=== PATIENT | male | born 1970 | race Caucasian/White ===

== ENCOUNTER 2024-03-08 12:43 | Outpatient (CLI) | payer OTHER, SELFPAY | END 2024-03-08 12:44 | disposition home or self-care (01) | PROVIDERS: Visit Provider Surgery | DX: L89.523 Pressure ulcer of left ankle, stage 3 (principal); L89.893 Pressure ulcer of other site, stage 3; E11.8 Type 2 diabetes mellitus with unspecified complications; G90.09 Other idiopathic peripheral autonomic neuropathy; M21.172 Varus deformity, not elsewhere classified, left ankle | CPT/HCPCS: 11042; G0463 ==

== ENCOUNTER 2024-03-15 13:15 | Outpatient (CLI) | payer OTHER, SELFPAY | END 2024-03-15 13:16 | disposition home or self-care (01) | LOC: WOUND 13:15 | PROVIDERS: Visit Provider Surgery | DX: L89.523 Pressure ulcer of left ankle, stage 3 (principal); L89.893 Pressure ulcer of other site, stage 3; G90.09 Other idiopathic peripheral autonomic neuropathy; M21.172 Varus deformity, not elsewhere classified, left ankle | CPT/HCPCS: 11042; 87070; 87077; 87186; 97597 ==

== ENCOUNTER 2024-03-29 12:53 | Outpatient (CLI) | payer OTHER, SELFPAY | END 2024-03-29 12:54 | disposition home or self-care (01) | PROVIDERS: Visit Provider Surgery | DX: G90.09 Other idiopathic peripheral autonomic neuropathy (principal); L97.322 Non-pressure chronic ulcer of left ankle with fat layer exposed; L89.899 Pressure ulcer of other site, unspecified stage; M21.172 Varus deformity, not elsewhere classified, left ankle; E11.8 Type 2 diabetes mellitus with unspecified complications | CPT/HCPCS: 11042; 87070; 87077; 87186; 97597; G0463 ==

== ENCOUNTER 2024-04-05 13:17 | Outpatient (CLI) | payer OTHER, SELFPAY | END 2024-04-05 13:18 | disposition home or self-care (01) | LOC: WOUND 13:17 | PROVIDERS: Visit Provider Family Medicine | DX: L89.523 Pressure ulcer of left ankle, stage 3 (principal); L89.893 Pressure ulcer of other site, stage 3; G90.09 Other idiopathic peripheral autonomic neuropathy; M21.172 Varus deformity, not elsewhere classified, left ankle | CPT/HCPCS: 11042 ==

== ENCOUNTER 2024-04-12 12:41 | Outpatient (CLI) | payer OTHER, SELFPAY | END 2024-04-12 12:42 | disposition home or self-care (01) | LOC: WOUND 12:41 | PROVIDERS: Visit Provider Physician Assistant | DX: L89.523 Pressure ulcer of left ankle, stage 3 (principal); L89.893 Pressure ulcer of other site, stage 3; M21.172 Varus deformity, not elsewhere classified, left ankle; G90.09 Other idiopathic peripheral autonomic neuropathy | CPT/HCPCS: 97597 ==

== ENCOUNTER 2024-04-19 12:56 | Outpatient (CLI) | payer OTHER, SELFPAY | END 2024-04-19 12:57 | disposition home or self-care (01) | LOC: WOUND 12:56 | PROVIDERS: Visit Provider Surgery | DX: L89.523 Pressure ulcer of left ankle, stage 3 (principal); M21.172 Varus deformity, not elsewhere classified, left ankle; G90.09 Other idiopathic peripheral autonomic neuropathy | CPT/HCPCS: 11042 ==

== ENCOUNTER 2024-04-26 12:35 | Outpatient (CLI) | payer OTHER, SELFPAY | END 2024-04-26 12:36 | disposition home or self-care (01) | LOC: WOUND 12:35 | PROVIDERS: Visit Provider Surgery | DX: L89.523 Pressure ulcer of left ankle, stage 3 (principal); L89.623 Pressure ulcer of left heel, stage 3; L89.893 Pressure ulcer of other site, stage 3; G90.09 Other idiopathic peripheral autonomic neuropathy; M21.172 Varus deformity, not elsewhere classified, left ankle | CPT/HCPCS: 97597 ==

== ENCOUNTER 2024-05-09 12:48 | Outpatient (CLI) | payer OTHER, SELFPAY ==
[2024-05-09 15:14] LABS: Basophils Absolute Auto 0.03 K/uL (0.00-0.30); Basophils Percent Auto 0.3 % (0.0-3.0); Eosinophils Percent Auto 1.1 % (0.0-7.0); Hematocrit 44.6 % (37.0-53.0); Hemoglobin* 14.9 gm/dL (13.5-17.5); Immature Granulocytes Abs Auto 0.16 K/uL (0.00-0.30); Immature Granulocytes Pct Auto 1.7 %; Lymphocytes Percent Auto 14.2 % (20-44); Mean Corpuscular HGB Conc 33 gm/dL (32-36); Mean Corpuscular Hemoglobin 29 pg (26-34); Mean Corpuscular Volume 88 fL (80-100); Monocytes Percent Auto 16.5 % (0.0-11.0); Neutrophils Percent Auto 66.2 % (42.0-72.0); Platelet Count* 398 K/uL (140-440); RDW Coefficient of Variation % 14.4 % (11.5-15.5); White Blood Count* 9.51 K/uL (4.50-11.00)
[2024-05-09 15:33] LABS: Hemoglobin A1C* 5.5 % (0-5.6); Slide Review Reflex No
[2024-05-09 16:09] LABS: Erythrocyte SedimentationRate* 67 mm/hr (2-15)
[2024-05-09 18:49] LABS: Albumin* 3.6 g/dL (3.3-5.0); Chloride* 93 mmol/L (96-114)
[2024-05-09 18:50] LABS: Potassium* 4.4 mmol/L (3.6-5.1); Sodium* 135 mmol/L (135-149)
[2024-05-09 18:52] LABS: Anion Gap 14 mEq/L (7-15); Bilirubin Total* 1.1 mg/dL (0.1-1.5); Carbon Dioxide* 28 mmol/L (20-32); Creatinine* 0.9 mg/dL (0.5-1.5); Estimated Glomerular Filt Rate 101 ml/min
[2024-05-09 18:53] LABS: Alanine Aminotransferase* 28 U/L (4-50); Alkaline Phosphatase* 95 U/L (40-150); Aspartate Amino Transferase* 28 U/L (12-35); Blood Urea Nitrogen* 22 mg/dL (7-30); Calcium* 10.5 mg/dL (8.4-10.6); Glucose* 99 mg/dL (60-115); Total Protein* 7.3 g/dL (6.0-8.3)
== END 2024-05-09 12:49 | disposition home or self-care (01) ==
LOC: WOUND 12:48
PROVIDERS: Visit Provider Nurse Practitioner Family
DX: M86.172 Other acute osteomyelitis, left ankle and foot (principal); G90.09 Other idiopathic peripheral autonomic neuropathy; L89.524 Pressure ulcer of left ankle, stage 4; L89.624 Pressure ulcer of left heel, stage 4; M21.172 Varus deformity, not elsewhere classified, left ankle; R73.03 Prediabetes
CPT/HCPCS: 11043; 36415; 80053; 83036; 85025; 85651; 86140; 87070; 87077; 87186; 96372; G0463; J0696

== ENCOUNTER 2024-05-09 15:09 | Outpatient (CLI) | payer OTHER, SELFPAY ==
--- NOTE | 2024-05-09 15:30 | MR_ITS ---
Patient: LEONIDES PADRON Facility:?[facility] Patient ID:?[id number] Site Patient ID:?[id number] Site :?[id number] Study:?MRI-Extremity Left ANKLE W/WO 30 CC DOTAREM-05/09/2024 5:18:44 PM Ordering Physician:?Lionel Sanchez Final Report: INDICATION: Nonhealing wounds. Prior surgery. COMPARISON: None. TECHNIQUE: Axial PD and STIR, coronal PD and STIR and sagittal T1 and STIR pre contrast sequences. 30 mL no seroma IV contrast with T1 fat-sat postcontrast sequences in all 3 planes. FINDINGS: Prominent artifact from fusion screws in the calcaneus and talus. Moderately large volume of fluid with peripheral enhancement and prominent scattered foci of low signal through the undulating irregular presumed prior tibiotalar ankle joint. Significant low signal in the anterior recess is presumably air. Dense abnormal T1 marrow edema around the fluid in the tibia, calcaneus and residual talus with mild reactive edema in the navicular, cuboid and cuneiforms. 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 Small amount of tenosynovitis in the flexor tendons around the medial ankle. Small amount of tenosynovitis in the common peroneal tendon sheath. Intact Achilles. Prominent muscle fatty atrophy throughout the field of view. IMPRESSION: Septic arthritis and osteomyelitis appears centered at the irregular undulating obscured tibiotalar ankle joint. Joint is mostly obscured by hindfoot fusion hardware. Reactive versus septic tenosynovitis flexor tendons and peroneal tendons around the ankle. No abscess. Dictated by Destin Hassan MD @ 05/10/2024 2:43:43 PM Signed by:?Destin Hassan MD @05/10/2024 2:43:43 PM (Electronic Signature)
--- NOTE | 2024-05-09 15:30 | MR_ITS ---
Patient: LEONIDES PADRON Facility:?[facility] Patient ID:?[id number] Site Patient ID:?[id number]. Site :?[id number] Study:?MRI-Extremity Left FOOT OSTEO W/WO 30 CC DOTAREM-05/09/2024 5:17:58 PM Ordering Physician:?Lionel Sanchez Final Report: INDICATION: Nonhealing wounds. Prior surgery. COMPARISON: None. TECHNIQUE: Axial coronal and sagittal T1 and STIR pre contrast sequences. 30 mL Dotarem IV contrast T1 fat-sat postcontrast sequences centered on the left forefoot. FINDINGS: Dorsal soft tissue edema. No abscess or other organized fluid. No fracture or bone lesion. No ostial myelitis. Minor osteoarthritis 1st MTP. Bifid tibial hallux sesamoid. Incomplete visualization of edema like STIR signal in the navicular, cuboid and proximal cuneiforms. IMPRESSION: No osteomyelitis in the forefoot. Nonspecific edema in the cuneiforms navicular and cuboid. Please see MR ankle dictation from same date for further discussion. Dictated by Destin Hassan MD @ 05/10/2024 2:36:12 PM Signed by:?Destin Hassan MD @05/10/2024 2:36:12 PM (Electronic Signature)
== END 2024-05-09 15:10 | disposition home or self-care (01) ==
LOC: MRI 15:09
PROVIDERS: Visit Provider Nurse Practitioner Family
DX: L97.322 Non-pressure chronic ulcer of left ankle with fat layer exposed (principal); M86.8X7 Other osteomyelitis, ankle and foot; M00.9 Pyogenic arthritis, unspecified
CPT/HCPCS: 73720; 73723; A9575

== ENCOUNTER 2024-10-11 07:51 | Outpatient (CLI) | payer OTHER, SELFPAY | END 2024-10-11 07:52 | disposition home or self-care (01) | PROVIDERS: Visit Provider Nurse Practitioner Family | DX: G90.09 Other idiopathic peripheral autonomic neuropathy (principal); L97.512 Non-pressure chronic ulcer of other part of right foot with fat layer exposed; M21.171 Varus deformity, not elsewhere classified, right ankle; R73.03 Prediabetes; E66.01 Morbid (severe) obesity due to excess calories; Z68.37 Body mass index [BMI] 37.0-37.9, adult | CPT/HCPCS: 11042; G0463 ==

== ENCOUNTER 2024-10-11 09:06 | Outpatient (CLI) | payer OTHER, SELFPAY ==
--- NOTE | 2024-10-11 09:15 | CRLHL7_ITS ---
For Patients: As a result of the Cures Act, medical imaging exams and procedure reports are released immediately into your electronic medical record. You may view this report before your referring provider. If you have questions, please contact your health care provider. INDICATION: Assess for osteomyelitis, pressure wound COMPARISON: Left foot MRI 05/09/2024 TECHNIQUE: Three views right foot, nonweightbearing. FINDINGS: No acute or healing fractures. 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 There is overlying soft tissue swelling and bandage material. There is some heterogeneous demineralization in the navicular. No foreign body. Question stress reaction or stress fracture in the right 2nd metatarsal with some irregular callus formation medially and thin smooth periostitis laterally. There is smooth periostitis along the lateral aspect of the proximal to mid right great toe metatarsal. Significant subtalar arthritis. Large os trigonum. There is background of fairly substantial degeneration in the midfoot. 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 Large soft tissue swelling around the ankle with an ankle joint effusion. IMPRESSION: 1. Appearance of the left navicular bone is suspicious for osteomyelitis given the overlying soft tissue wound. 2. Other findings as above. Possible 2nd metatarsal stress fracture. Dictated by Nancy Lopez MD @ 10/11/2024 9:58:25 AM (Electronically Signed)
== END 2024-10-11 09:07 | disposition home or self-care (01) ==
LOC: RAD 09:07
PROVIDERS: Visit Provider Nurse Practitioner Family
DX: L97.512 Non-pressure chronic ulcer of other part of right foot with fat layer exposed (principal)
CPT/HCPCS: 73630

== ENCOUNTER 2024-10-18 08:20 | Outpatient (CLI) | payer OTHER, SELFPAY | END 2024-10-18 08:21 | disposition home or self-care (01) | LOC: WOUND 08:20 | PROVIDERS: Visit Provider Nurse Practitioner Family | DX: G90.09 Other idiopathic peripheral autonomic neuropathy (principal); L97.512 Non-pressure chronic ulcer of other part of right foot with fat layer exposed; M21.171 Varus deformity, not elsewhere classified, right ankle; R73.03 Prediabetes | CPT/HCPCS: 11042 ==

== ENCOUNTER 2024-10-25 10:53 | Outpatient (CLI) | payer OTHER, SELFPAY | END 2024-10-25 10:54 | disposition home or self-care (01) | LOC: WOUND 10:53 | PROVIDERS: Visit Provider Nurse Practitioner Family | DX: G90.09 Other idiopathic peripheral autonomic neuropathy (principal); L97.512 Non-pressure chronic ulcer of other part of right foot with fat layer exposed; M21.171 Varus deformity, not elsewhere classified, right ankle; R73.03 Prediabetes | CPT/HCPCS: 11042 ==

== ENCOUNTER 2024-11-01 07:59 | Outpatient (CLI) | payer MEDICAID, SELFPAY | END 2024-11-01 08:00 | disposition home or self-care (01) | PROVIDERS: Visit Provider Nurse Practitioner Family | DX: G90.09 Other idiopathic peripheral autonomic neuropathy (principal); L97.512 Non-pressure chronic ulcer of other part of right foot with fat layer exposed; R73.03 Prediabetes; M21.171 Varus deformity, not elsewhere classified, right ankle | CPT/HCPCS: 11042; G0463 ==

== ENCOUNTER 2024-11-08 11:12 | Outpatient (CLI) | payer MEDICAID, SELFPAY | END 2024-11-08 11:13 | disposition home or self-care (01) | LOC: WOUND 11:12 | PROVIDERS: Visit Provider Nurse Practitioner Family | DX: G90.09 Other idiopathic peripheral autonomic neuropathy (principal); M21.171 Varus deformity, not elsewhere classified, right ankle; L97.512 Non-pressure chronic ulcer of other part of right foot with fat layer exposed; R73.03 Prediabetes | CPT/HCPCS: 11042 ==

== ENCOUNTER 2024-11-22 07:56 | Outpatient (CLI) | payer MEDICAID, SELFPAY | END 2024-11-22 07:57 | disposition home or self-care (01) | LOC: WOUND 07:56 | PROVIDERS: Visit Provider Nurse Practitioner Family | DX: G90.09 Other idiopathic peripheral autonomic neuropathy (principal); L97.512 Non-pressure chronic ulcer of other part of right foot with fat layer exposed; R73.03 Prediabetes; M21.171 Varus deformity, not elsewhere classified, right ankle | CPT/HCPCS: 11042 ==

== ENCOUNTER 2024-11-29 08:02 | Outpatient (CLI) | payer MEDICAID, SELFPAY | END 2024-11-29 08:03 | disposition home or self-care (01) | LOC: WOUND 08:02 | PROVIDERS: Visit Provider Nurse Practitioner Family | DX: G90.09 Other idiopathic peripheral autonomic neuropathy (principal); L97.512 Non-pressure chronic ulcer of other part of right foot with fat layer exposed; M21.171 Varus deformity, not elsewhere classified, right ankle; R73.03 Prediabetes; E66.01 Morbid (severe) obesity due to excess calories; Z68.37 Body mass index [BMI] 37.0-37.9, adult | CPT/HCPCS: 11042 ==

== ENCOUNTER 2024-12-06 07:51 | Outpatient (CLI) | payer MEDICAID, SELFPAY | END 2024-12-06 07:52 | disposition home or self-care (01) | LOC: WOUND 07:51 | PROVIDERS: Visit Provider Nurse Practitioner Family | DX: G90.09 Other idiopathic peripheral autonomic neuropathy (principal); L97.512 Non-pressure chronic ulcer of other part of right foot with fat layer exposed; M21.171 Varus deformity, not elsewhere classified, right ankle; R73.03 Prediabetes | CPT/HCPCS: 11042 ==

== ENCOUNTER 2024-12-13 07:50 | Outpatient (CLI) | payer OTHER, SELFPAY | END 2024-12-13 07:51 | disposition home or self-care (01) | LOC: WOUND 07:50 | PROVIDERS: Visit Provider Family Medicine | DX: G90.09 Other idiopathic peripheral autonomic neuropathy (principal); L97.512 Non-pressure chronic ulcer of other part of right foot with fat layer exposed; M21.171 Varus deformity, not elsewhere classified, right ankle; R73.03 Prediabetes | CPT/HCPCS: 11042 ==

== ENCOUNTER 2024-12-20 07:58 | Outpatient (CLI) | payer OTHER, SELFPAY | END 2024-12-20 07:59 | disposition home or self-care (01) | LOC: WOUND 07:59 | PROVIDERS: Visit Provider Physician Assistant | DX: G90.09 Other idiopathic peripheral autonomic neuropathy (principal); L97.512 Non-pressure chronic ulcer of other part of right foot with fat layer exposed; R73.03 Prediabetes; M21.171 Varus deformity, not elsewhere classified, right ankle | CPT/HCPCS: 97597 ==

== ENCOUNTER 2024-12-27 08:01 | Outpatient (CLI) | payer OTHER, SELFPAY | END 2024-12-27 08:02 | disposition home or self-care (01) | LOC: WOUND 08:01 | PROVIDERS: Visit Provider Nurse Practitioner Family | DX: G90.09 Other idiopathic peripheral autonomic neuropathy (principal); L97.512 Non-pressure chronic ulcer of other part of right foot with fat layer exposed; M21.171 Varus deformity, not elsewhere classified, right ankle; R73.03 Prediabetes | CPT/HCPCS: 11042 ==

== ENCOUNTER 2025-01-03 08:03 | Outpatient (CLI) | payer OTHER, SELFPAY | END 2025-01-03 08:04 | disposition home or self-care (01) | LOC: WOUND 08:03 | PROVIDERS: Visit Provider Nurse Practitioner Family | DX: G90.09 Other idiopathic peripheral autonomic neuropathy (principal); L97.512 Non-pressure chronic ulcer of other part of right foot with fat layer exposed; M21.171 Varus deformity, not elsewhere classified, right ankle; R73.03 Prediabetes | CPT/HCPCS: 15275; C5275; Q4102 ==

== ENCOUNTER 2025-01-09 08:14 | Outpatient (CLI) | payer OTHER, SELFPAY | END 2025-01-09 08:15 | disposition home or self-care (01) | LOC: WOUND 08:14 | PROVIDERS: Visit Provider Nurse Practitioner Family | DX: G90.09 Other idiopathic peripheral autonomic neuropathy (principal); L97.512 Non-pressure chronic ulcer of other part of right foot with fat layer exposed; M21.171 Varus deformity, not elsewhere classified, right ankle; R73.03 Prediabetes | CPT/HCPCS: 97597 ==

== ENCOUNTER 2025-01-17 07:54 | Outpatient (CLI) | payer OTHER, SELFPAY | END 2025-01-17 07:55 | disposition home or self-care (01) | LOC: WOUND 07:54 | PROVIDERS: Visit Provider Nurse Practitioner Family | DX: G90.09 Other idiopathic peripheral autonomic neuropathy (principal); M21.171 Varus deformity, not elsewhere classified, right ankle; L97.512 Non-pressure chronic ulcer of other part of right foot with fat layer exposed; R73.03 Prediabetes | CPT/HCPCS: 15275; C5275; Q4102 ==

== ENCOUNTER 2025-01-24 07:57 | Outpatient (CLI) | payer OTHER, SELFPAY | END 2025-01-24 07:58 | disposition home or self-care (01) | LOC: WOUND 07:57 | PROVIDERS: Visit Provider Nurse Practitioner Family | DX: G90.09 Other idiopathic peripheral autonomic neuropathy (principal); L97.512 Non-pressure chronic ulcer of other part of right foot with fat layer exposed; M21.171 Varus deformity, not elsewhere classified, right ankle; R73.03 Prediabetes | CPT/HCPCS: 97597 ==

== ENCOUNTER 2025-01-31 07:50 | Outpatient (CLI) | payer OTHER, SELFPAY | END 2025-01-31 07:51 | disposition home or self-care (01) | LOC: WOUND 07:50 | PROVIDERS: Visit Provider Nurse Practitioner Family | DX: G90.09 Other idiopathic peripheral autonomic neuropathy (principal); L97.512 Non-pressure chronic ulcer of other part of right foot with fat layer exposed; M21.171 Varus deformity, not elsewhere classified, right ankle; R73.03 Prediabetes | CPT/HCPCS: 11042 ==

== ENCOUNTER 2025-02-07 07:50 | Outpatient (CLI) | payer OTHER, SELFPAY | END 2025-02-07 07:51 | disposition home or self-care (01) | LOC: WOUND 07:50 | PROVIDERS: Visit Provider Nurse Practitioner Family | DX: G90.09 Other idiopathic peripheral autonomic neuropathy (principal); L97.512 Non-pressure chronic ulcer of other part of right foot with fat layer exposed; M21.171 Varus deformity, not elsewhere classified, right ankle; R73.03 Prediabetes | CPT/HCPCS: 11042 ==

== ENCOUNTER 2025-02-14 07:54 | Outpatient (CLI) | payer OTHER, SELFPAY | END 2025-02-14 07:55 | disposition home or self-care (01) | LOC: WOUND 07:54 | PROVIDERS: Visit Provider Nurse Practitioner Family | DX: G90.09 Other idiopathic peripheral autonomic neuropathy (principal); L97.512 Non-pressure chronic ulcer of other part of right foot with fat layer exposed; M21.171 Varus deformity, not elsewhere classified, right ankle; R73.03 Prediabetes | CPT/HCPCS: 15275; C5275; Q4102 ==

== ENCOUNTER 2025-02-21 07:55 | Outpatient (CLI) | payer OTHER, SELFPAY | END 2025-02-21 07:56 | disposition home or self-care (01) | LOC: WOUND 07:55 | PROVIDERS: Visit Provider Nurse Practitioner Family | DX: G90.09 Other idiopathic peripheral autonomic neuropathy (principal); M21.171 Varus deformity, not elsewhere classified, right ankle; L97.512 Non-pressure chronic ulcer of other part of right foot with fat layer exposed; R73.03 Prediabetes | CPT/HCPCS: 97597 ==

== ENCOUNTER 2025-02-28 07:51 | Outpatient (CLI) | payer OTHER, SELFPAY | END 2025-02-28 07:52 | disposition home or self-care (01) | LOC: WOUND 07:51 | PROVIDERS: Visit Provider Nurse Practitioner Family | DX: G90.09 Other idiopathic peripheral autonomic neuropathy (principal); L97.512 Non-pressure chronic ulcer of other part of right foot with fat layer exposed; M21.171 Varus deformity, not elsewhere classified, right ankle; R73.03 Prediabetes; E66.01 Morbid (severe) obesity due to excess calories; Z68.37 Body mass index [BMI] 37.0-37.9, adult | CPT/HCPCS: 11042 ==

== ENCOUNTER 2025-03-07 07:45 | Outpatient (CLI) | payer OTHER, SELFPAY | END 2025-03-07 07:46 | disposition home or self-care (01) | LOC: WOUND 07:45 | PROVIDERS: Visit Provider Nurse Practitioner Family | DX: G90.09 Other idiopathic peripheral autonomic neuropathy (principal); L97.512 Non-pressure chronic ulcer of other part of right foot with fat layer exposed; R73.03 Prediabetes; M21.171 Varus deformity, not elsewhere classified, right ankle | CPT/HCPCS: 11042 ==

== ENCOUNTER 2025-03-14 07:54 | Outpatient (CLI) | payer OTHER, SELFPAY | END 2025-03-14 07:55 | disposition home or self-care (01) | LOC: WOUND 07:54 | PROVIDERS: Visit Provider Nurse Practitioner Family | DX: G90.09 Other idiopathic peripheral autonomic neuropathy (principal); L97.512 Non-pressure chronic ulcer of other part of right foot with fat layer exposed; M21.171 Varus deformity, not elsewhere classified, right ankle; R73.03 Prediabetes | CPT/HCPCS: 11042 ==

== ENCOUNTER 2025-03-21 07:49 | Outpatient (CLI) | payer OTHER, SELFPAY | END 2025-03-21 07:50 | disposition home or self-care (01) | LOC: WOUND 07:50 | PROVIDERS: Visit Provider Nurse Practitioner Family | DX: G90.09 Other idiopathic peripheral autonomic neuropathy (principal); L97.512 Non-pressure chronic ulcer of other part of right foot with fat layer exposed; M21.171 Varus deformity, not elsewhere classified, right ankle; R73.03 Prediabetes | CPT/HCPCS: 15275; C5275; Q4102 ==

== ENCOUNTER 2025-03-28 07:50 | Outpatient (CLI) | payer OTHER, SELFPAY | END 2025-03-28 07:51 | disposition home or self-care (01) | LOC: WOUND 07:50 | PROVIDERS: Visit Provider Nurse Practitioner Family | DX: G90.09 Other idiopathic peripheral autonomic neuropathy (principal); L97.512 Non-pressure chronic ulcer of other part of right foot with fat layer exposed; M21.171 Varus deformity, not elsewhere classified, right ankle; R73.03 Prediabetes | CPT/HCPCS: G0463 ==

== ENCOUNTER 2025-04-05 09:44 | Outpatient (CLI) | payer OTHER, SELFPAY | END 2025-04-05 09:45 | disposition home or self-care (01) | LOC: WOUND 09:44 | PROVIDERS: Visit Provider Nurse Practitioner Family | DX: G90.09 Other idiopathic peripheral autonomic neuropathy (principal); L97.512 Non-pressure chronic ulcer of other part of right foot with fat layer exposed; M21.171 Varus deformity, not elsewhere classified, right ankle; R73.03 Prediabetes | CPT/HCPCS: 11042 ==

== ENCOUNTER 2025-04-12 07:50 | Outpatient (CLI) | payer OTHER, SELFPAY | END 2025-04-12 07:51 | disposition home or self-care (01) | LOC: WOUND 07:50 | DX: G90.09 Other idiopathic peripheral autonomic neuropathy (principal); L97.512 Non-pressure chronic ulcer of other part of right foot with fat layer exposed; M21.171 Varus deformity, not elsewhere classified, right ankle; R73.03 Prediabetes | CPT/HCPCS: 11042 ==

== ENCOUNTER 2025-04-27 10:31 | Outpatient (CLI) | payer OTHER, SELFPAY | END 2025-04-27 10:32 | disposition home or self-care (01) | LOC: WOUND 10:31 | PROVIDERS: Visit Provider Nurse Practitioner Family | DX: G90.09 Other idiopathic peripheral autonomic neuropathy (principal); L97.511 Non-pressure chronic ulcer of other part of right foot limited to breakdown of skin; M21.171 Varus deformity, not elsewhere classified, right ankle; R73.03 Prediabetes | CPT/HCPCS: 97597 ==

== ENCOUNTER 2025-05-02 07:51 | Outpatient (CLI) | payer OTHER, SELFPAY | END 2025-05-02 07:52 | disposition home or self-care (01) | LOC: WOUND 07:51 | PROVIDERS: Visit Provider Nurse Practitioner Family | DX: Z09 Encounter for follow-up examination after completed treatment for conditions other than malignant neoplasm (principal); Z87.2 Personal history of diseases of the skin and subcutaneous tissue | CPT/HCPCS: G0463 ==